=== PATIENT | male | born 1965 | race Caucasian/White ===

== ENCOUNTER 2018-06-11 01:36 | Outpatient (CLI) | payer OTHER, SELFPAY ==
--- NOTE | 2018-06-11 12:42 | DI.RAD_ITS ---
SYMPTOMS/DIAGNOSIS: SHORTNESS OF BREATH, R06.02 PA AND LATERAL CHEST: The heart is normal in size. The lungs are clear. The mediastinal structures and pleura appear intact. CONCLUSION: Normal chest.
--- NOTE | 2018-06-11 14:41 | PFT_ITS ---
PULMONARY FUNCTION TEST REPORT DATE OF SERVICE: June 11, 2018 REQUESTING PROVIDER: Tristan Azevedo M.D. Spirometry shows no evidence of obstructive airways disease; no bronchodilator response. IMPRESSION: Normal spirometry. Clinical correlation recommended. EMIL/paola D/
== END 2018-06-11 01:56 ==
PROVIDERS: PCP Family Medicine; Visit Provider Orthopaedic Surgery
DX: R06.02 Shortness of breath (principal); Z02.71 Encounter for disability determination
CPT/HCPCS: 94060; 71046